=== PATIENT | male | born 1955 ===

== ENCOUNTER 2017-10-07 14:16 | Outpatient (CLI) | payer OTHER | END 2017-10-07 15:00 | disposition home or self-care (01) | LOC: NUCLEAR 14:16 | DX: M81.0 Age-related osteoporosis without current pathological fracture (principal) ==

== ENCOUNTER 2017-10-19 07:10 | Outpatient (CLI) | payer OTHER | END 2017-10-19 07:22 | disposition home or self-care (01) | LOC: SONOGRAMA 07:10 | DX: N28.89 Other specified disorders of kidney and ureter (principal); I10 Essential (primary) hypertension ==

== ENCOUNTER → 2020-01-16 12:21 | Outpatient (CLI) | payer OTHER | END | disposition home or self-care (01) | LOC: LAB 12:21 | PROVIDERS: ATTEND Radiology Diagnostic Radiology | DX: N20.0 Calculus of kidney (principal) ==

== ENCOUNTER 2020-01-18 08:14 | Outpatient (CLI) | payer OTHER | END 2020-01-18 08:26 | disposition home or self-care (01) | LOC: TOM 08:14 | PROVIDERS: ATTEND Internal Medicine Gastroenterology | DX: K40.90 Unilateral inguinal hernia, without obstruction or gangrene, not specified as recurrent (principal); K57.92 Diverticulitis of intestine, part unspecified, without perforation or abscess without bleeding; Q61.02 Congenital multiple renal cysts ==

== ENCOUNTER 2020-07-31 08:07 | Outpatient (CLI) | payer OTHER | END 2020-07-31 08:21 | disposition home or self-care (01) | LOC: SONOGRAMA 08:07 → MAMO-SONO 08:15 → SONOGRAMA 08:21 | PROVIDERS: ATTEND Specialist/Technologist, Other Nephrology | DX: R31.9 Hematuria, unspecified (principal); R10.9 Unspecified abdominal pain ==